=== PATIENT | female | born 1980 | race African-American/Black ===

== ENCOUNTER 2021-03-01 11:09 | Day surgery (SDC) | payer OTHER ==
[2021-03-01 11:18] VITALS: BMI 33.6
[2021-03-01 12:21] LABS: BASO % 0.6 % (0-2.0); EOS % 1.3 % (0-4.5); HEMATOCRIT 40.5 % (32.4-45.2); HEMOGLOBIN 13.8 GM/dL (10.7-15.3); LYMPH % 30.9 % (8-40); MCH 30.7 pg (25.7-33.7); MCHC 34.1 g/dl (32.0-36.0); MEAN CELL VOLUME 90.1 fl (80-96); MEAN PLT VOLUME 6.9 fl (7.5-11.1); MONO % 11.6 % (3.8-10.2); NEUT % 55.6 % (42.8-82.8); PLATELET COUNT 317 K/MM3 (134-434); RBC 4.49 M/mm3 (3.60-5.2); RDW 14.1 % (11.6-15.6); WHITE BLOOD COUNT 5.6 K/mm3 (4.0-10.0)
[2021-03-01 12:22] LABS: EPI CELLS 7 /uL (0-25.1); HYALINE CASTS 1 /uL (0-3.1); PH,URINE 6.5 (5.0-8.0); URINE APPEARANCE CLEAR; URINE BACTERIA 314 /uL (0-1359); URINE BILIRUBIN NEGATIVE (NEGATIVE); URINE COLOR YELLOW; URINE GLUCOSE (UA) NEGATIVE (NEGATIVE); URINE KETONE NEGATIVE (NEGATIVE); URINE LEUK ESTERASE NEGATIVE (NEGATIVE); URINE NITRITE NEGATIVE (NEGATIVE); URINE PROTEIN NEGATIVE (NEGATIVE); URINE UROBILINOGEN 0.2 mg/dL (0.2-1.0); URINE WBC 3 /uL (0-25.8)
[2021-03-01 12:50] LABS: ALBUMIN 3.6 g/dl (3.4-5.0); BILIRUBIN,TOTAL 0.6 mg/dL (0.2-1); CALCIUM 8.8 mg/dL (8.5-10.1); CREATININE 0.7 mg/dL (0.55-1.3); TOT PROT 7.5 g/dl (6.4-8.2)
[2021-03-01 13:42] LABS: URINE RBC 16.5 /uL (0-23.9); YEAST NO SEEN (NEGATIVE)
[2021-03-01] MEDS ORDERED: SODIUM CHLORIDE 1,000 ML IV STA (13:48)
[2021-03-01] MEDS ORDERED: SUCCINYLCHOLINE CHLORIDE 200 MG/10 ML SYRINGE ONE (15:07)
[2021-03-01] MEDS ORDERED: MIDAZOLAM HCL 2 MG/2 ML SINGLE DOSE VIAL ONE (15:07)
[2021-03-01] MEDS ORDERED: PROPOFOL 20 ML ONE (15:07)
[2021-03-01] MEDS ORDERED: ROCURONIUM BROMIDE 50 MG/5 ML SYRINGE ONE (15:29)
[2021-03-01] MEDS ORDERED: DEXAMETHASONE SOD PHOSPHATE 4 MG/1 ML VIAL ONE (15:33)
[2021-03-01] MEDS ORDERED: BUPIVACAINE HCL/PF 0.25% (2.5MG/ML) 10 ML VIAL ONE (15:42)
[2021-03-01] MEDS ORDERED: BUPIVACAINE HCL/PF 0.25% (2.5MG/ML) 10 ML VIAL IJ ONE (15:57)
[2021-03-01] MEDS ORDERED: NEOSTIGMINE METHYLSULFATE 0.5 MG/ML - 10 ML MDV ONE (16:26)
[2021-03-01] MEDS ORDERED: GLYCOPYRROLATE 0.2 MG/1 ML VIAL ONE (16:27)
[2021-03-01] MEDS ORDERED: oxyCODONE HCL 5 MG TABLET PO PRN (16:50)
[2021-03-01] MEDS ORDERED: ONDANSETRON 4 MG/2 ML VIAL IVPUSH PRN ×2 (16:50→18:17)
[2021-03-01] MEDS ORDERED: LACTATED RINGERS SOLUTION 1,000 ML IV SCH (17:00)
[2021-03-01] MEDS: ACETAMINOPHEN 325 MG TABLET (FP) PO PRN (19:00)
[2021-03-01] MEDS: SIMETHICONE 80 MG TAB.CHEW (FP) PO PRN ×2 (19:01→23:21)
[2021-03-01] MEDS: oxyCODONE HCL 5 MG TABLET PO PRN ×2 (19:01→23:20)
[2021-03-01] MEDS ORDERED: IBUPROFEN 800 MG/8 ML IJ IVPB PRN (23:46)
[2021-03-02] MEDS: ACETAMINOPHEN 325 MG TABLET (FP) PO PRN ×2 (08:16→14:15)
[2021-03-02] MEDS: IBUPROFEN 600 MG TABLET (FP) PO PRN ×2 (08:17→14:15)
[2021-03-02] MEDS: SIMETHICONE 80 MG TAB.CHEW (FP) PO PRN ×3 (08:17→17:32)
[2021-03-03] MEDS: IBUPROFEN 600 MG TABLET (FP) PO PRN (01:20)
[2021-03-03] MEDS: ACETAMINOPHEN 325 MG TABLET (FP) PO PRN (01:20)
[2021-03-03] MEDS: SIMETHICONE 80 MG TAB.CHEW (FP) PO PRN (01:21)
[2021-03-03 11:44] VITALS: BP 125/86; PULSE 89; TEMP 98
== END 2021-03-03 11:30 | disposition home or self-care (01) ==
LOC: JER 11:09 → JASUSAT 13:49 → J3W 18:09 → JASUSAT 03-03 11:30
PROVIDERS: ATTEND Obstetrics & Gynecology
PROC: 0UB64ZZ Excision of Left Fallopian Tube, Percutaneous Endoscopic Approach (ICD-10-PCS; 2021-03-01)
PROC: 10T24ZZ Resection of Products of Conception, Ectopic, Percutaneous Endoscopic Approach (ICD-10-PCS; principal; 2021-03-01 14:30)
DX: O00.102 Left tubal pregnancy without intrauterine pregnancy (principal)
CPT/HCPCS: 36415; 76817-TC; 80053; 81003; 84702; 85025; 86850; 86900; 86901; 87086; 88302-TC; 94760; 99291; C9803; U0003; U0005